=== PATIENT | female | born 1940 | race Caucasian/White ===

== ENCOUNTER 2016-12-21 16:04 | Emergency (ER) | payer OTHER ==
[2016-12-21] MEDS ORDERED: PATIENT'S PHARMACY (16:34)
[2016-12-21] MEDS ORDERED: GABAPENTIN300 M2 PO (16:35)
[2016-12-21] MEDS ORDERED: LOPERAMIDE HCL2 M1 PO (16:35)
[2016-12-21] MEDS ORDERED: JANUVIA PO (16:35)
[2016-12-21] MEDS ORDERED: ALL DAY ALLERGY10 M3 PO (16:36)
[2016-12-21] MEDS ORDERED: SYNTHROID PO (16:36)
[2016-12-21] MEDS ORDERED: ASPIRIN81 M2 PO (16:36)
[2016-12-21] MEDS ORDERED: SYNTHROID137 MCG PO (16:36)
[2016-12-21] MEDS ORDERED: LASIX20 MG PO (16:37)
[2016-12-21] MEDS ORDERED: BENTYL10 M1 PO (16:37)
[2016-12-21] MEDS ORDERED: OXYBUTYNIN CHLO10 MG PO (16:37)
[2016-12-21] MEDS ORDERED: ACETAMINOPHEN PO (16:37)
[2016-12-21] MEDS ORDERED: PROZAC PO (16:38)
[2016-12-21] MEDS ORDERED: ZOLOFT PO (16:38)
[2016-12-21] MEDS ORDERED: KCL PO (16:38)
[2016-12-21] MEDS ORDERED: GLIPIZIDE XL5 MG PO (16:38)
[2016-12-21] MEDS ORDERED: ZOCOR PO (16:38)
[2016-12-21] MEDS ORDERED: COZAAR PO (16:39)
[2016-12-21] MEDS ORDERED: FLORANEX PO (16:39)
[2016-12-21 17:09] LABS: URINE SOURCE CLEAN CATCH
[2016-12-21 17:15] LABS: BASOPHIL% 0.5 % (0-2.5); EOSINOPHIL# 0.2 X10e3 (0-0.7); HEMATOCRIT 39.1 % (35.0-45.0); HEMOGLOBIN 12.7 gm/dL (12.0-16.0); LYMPHOCYTE% 11.7 % (17.0-45.0); MEAN CELL VOLUME 84.2 FL (83-96); MEAN CORPUSCULAR HEMOGLOBIN 27.4 PG (28-34); MEAN CORPUSCULAR HGB CONC 32.5 g/dL (30-36); MEAN PLATELET VOLUME 7.9 FL (6.5-11.5); MONOCYTE# 0.6 X10e3 (0-1.0); MONOCYTE% 6.8 % (3.0-12.0); NEUTROPHIL# 6.7 X10e3 (1.5-7.1); PLATELET COUNT 200 X10e3 (140-420); RED BLOOD COUNT 4.64 X10e (3.90-5.30); RED CELL DISTRIBUTION WIDTH 13.8 % (11.0-15.5); WHITE BLOOD COUNT 8.4 X10e3 (4.0-10.5)
[2016-12-21 17:22] LABS: DIFF IND NO
[2016-12-21 17:30] LABS: INR 0.9; PARTIAL THROMBOPLASTIN TIME 27.5 SECONDS (23.5-31.3); PROTHROMBIN TIME (PATIENT) 10.1 SECONDS (10.0-11.7)
[2016-12-21 17:38] LABS: CALCIUM SERUM 8.6 mg/dL (8.4-10.2); CREATININE SERUM 0.5 mg/dL (0.6-1.4); GLOM FILT RATE Estimated 94.7 mL/min (>60); POTASSIUM 3.9 mmol/L (3.5-5.1)
[2016-12-21 17:43] LABS: URINE APPEARANCE CLOUDY; URINE BILIRUBIN NEG (NEG); URINE BLOOD 4+ (NEG); URINE COLOR RED; URINE GLUCOSE NORM (NEG); URINE KETONE NEG (NEG); URINE LEUKOCYTE ESTERASE 3+ (NEG); URINE NITRATE NEG (NEG); URINE PROTEIN 2+ (NEG); URINE UROBILINOGEN NORM (NEG)
[2016-12-21 17:46] LABS: URBCS1 AUWI 100-200 /[HPF] (0-2)
[2016-12-21 17:47] LABS: CULTURE INDICATED? YES; URINE BACTERIA AUWI 3+ (NEGATIVE)
== END 2016-12-21 20:25 | disposition home or self-care (01) ==
LOC: CED 16:04
PROVIDERS: Emergency Medicine
DX: N30.90 Cystitis, unspecified without hematuria (principal); R31.9 Hematuria, unspecified; R33.9 Retention of urine, unspecified; E78.5 Hyperlipidemia, unspecified; E11.9 Type 2 diabetes mellitus without complications; E03.9 Hypothyroidism, unspecified; Z90.49 Acquired absence of other specified parts of digestive tract; Z79.899 Other long term (current) drug therapy
CPT/HCPCS: 36415; 51702; 80048; 81003; 85025; 85610; 85730; 86850; 86900; 86901; 87086; 96374; 99284; J0696